=== PATIENT | male | born 1980 | race Caucasian/White ===

== ENCOUNTER 2017-12-21 03:24 | Emergency (ER) | payer OTHER ==
[2017-12-21 04:03] VITALS: BP 128/81; PULSE 96; TEMP 98.5; BMI 32.1
--- NOTE | 2017-12-21 04:33 | PDOC ---
History of Present Illness - General Chief Complaint: Toothache Stated Complaint: TOOTH PAIN Time Seen by Provider: 12/21/17 03:39 History Source: Patient Exam Limitations: No Limitations - History of Present Illness Initial Comments: 12/21/17 04:34 37-year-old male presents to the emergency department complaining of right sided facial pain. Patient states he had a previous root canal to the right second upper molar 2 years ago. Patient started feeling 4/10 throbbing nonradiating intermittent pain to the right upper second molar 2 days ago. Patient's been taking Motrin alternating with Tylenol with minimal pain relief. Patient was seen by a dentist yesterday afternoon. He had an x-ray taken of the right facial area which showed an abscess. Patient was sent home with Motrin and ibuprofen by his dentist. 6 hours later patient was seen at [place] emergency department for persistent pain with increased swelling. At [facility], he was given clindamycin 600 mg IV. Patient states he comes to us this morning which is approximately 8 hours after visiting [place] emergency department complaining of worsening swelling symptoms to the right face. Patient states the pain has pretty much subsided his face is still increasingly swollen. He denies fever, chills, nausea/vomiting, sore throat, difficulty swallowing. Past History - Past Medical History Allergies/Adverse Reactions: Allergies Allergy/AdvReac Type Severity Reaction Status Date / Time No Known Allergies Allergy Verified 08/05/12 18:37 Home Medications: Ambulatory Orders Azithromycin [Zithromax Z-ERICKA (5 DAYS) -] 250 mg PO DAILY #6 tablet 08/05/12 No Home Medications 0 dose .ROUTE UTDICT 08/05/12 - Suicide/Smoking/Psychosocial Hx Smoking Status: No Smoking History: Never smoked Have you smoked in the past 12 months: No Number of Cigarettes Smoked Daily: 0 Information on smoking cessation initiated: No Hx Alcohol Use: No Drug/Substance Use Hx: No Review of Systems - Review of Systems Able to Perform ROS?: Yes Comments:: 12/21/17 04:36 CONSTITUTIONAL: Absent: fever, chills, diaphoresis, generalized weakness, malaise, loss of appetite HEENT: +right facial swelling Absent: rhinorrhea, nasal congestion, throat pain, throat swelling, difficulty swallowing, mouth swelling, ear pain, eye pain, visual Changes CARDIOVASCULAR: Absent: chest pain, loss of consciousness, palpitations, irregular heart rate, peripheral edema RESPIRATORY: Absent: cough, shortness of breath, dyspnea with exertion, orthopnea, wheezing, stridor, hemoptysis GASTROINTESTINAL: Absent: abdominal pain, abdominal distension, nausea, vomiting, diarrhea, constipation, melena, hematochezia GENITOURINARY: Absent: dysuria, frequency, urgency, hesitancy, hematuria, flank pain, genital pain MUSCULOSKELETAL: Absent: myalgia, arthralgia, joint swelling SKIN: Absent: rash, itching, pallor Is the patient limited Romanian proficient: No *Physical Exam - Vital Signs Last Vital Signs Temp Pulse Resp BP Pulse Ox 98.5 F 96 H 18 128/81 100 12/21/17 04:00 12/21/17 04:00 12/21/17 04:00 12/21/17 04:00 12/21/17 04:00 - Physical Exam Comments: 12/21/17 04:36 GENERAL: Well developed, well nourished. Awake and alert. No acute distress. HEENT: Normocephalic, atraumatic. PERRLA, EOMI. No conjunctival pallor. Sclera are non- icteric. Moist mucous membranes. Oropharynx is clear. NECK: Supple. Full ROM. No JVD. Carotid pulses 2+ and symmetric, without bruits. No thyromegaly. No lymphadenopathy. CARDIOVASCULAR: Regular rate and rhythm. No murmurs, rubs, or gallops. Distal pulses are 2+ and symmetric. PULMONARY: No evidence of respiratory distress. Lungs clear to auscultation bilaterally. No wheezing, rales or rhonchi. ABDOMINAL: Soft. Non-tender. Non-distended. No rebound or guarding. No organomegaly. Normoactive bowel sounds. MUSCULOSKELETAL Normal range of motion at all joints. No bony deformities or tenderness. No CVA tenderness. EXTREMITIES: No cyanosis. No clubbing. No edema. No calf tenderness. SKIN: Warm and dry. Normal capillary refill. No rashes. No jaundice. +right facial swelling/cheek ED Treatment Course - RADIOLOGY Radiograph Interpretation: 12/21/17 05:27 CT maxillofacial impression: Right facial cellulitis without abscess. Prominent right facial soft tissue edema is noted suspected to represent cellulitis. No abscess. The intraorbital contents are intact. There is complete opacification right maxillary sinus and partial opacification right ethmoid sinus consistent with sinusitis. The other sinuses and mastoid ear cells are well aerated. There is no fracture. No CT findings for osteomyelitis. Right mandibular periapical cyst is noted. Medical Decision Making - Medical Decision Making 12/21/17 04:37 Patient has been seen by his regular dentist yesterday and was given amoxicillin and Motrin. Patient was seen last evening at [place] emergency department and was given clindamycin IV. Patient states swelling to the right side of his face has gotten increasingly worse. Facial scan ordered. *DC/Admit/Observation/Transfer Diagnosis at time of Disposition: Facial cellulitis - Discharge Dispostion Disposition: HOME Condition at time of disposition: Stable Admit: No - Referrals Referrals: Nader Baraajs MD [Primary Care Provider] - James Lee MD [Staff Physician] - - Patient Instructions Printed Discharge Instructions: DI for Cellulitis -- Adult Additional Instructions: Please follow-up with your dentist. Also follow up with the infectious disease doctor noted on your discharge. You had a CAT scan of the maxillary facial bones which shows right facial cellulitis without abscess or bone infections. Continue taking the antibiotics/clindamycin until completion. A copy of your CAT scan report has been given to you on discharge. Return back to the emergency department for severe/persistent or worsening symptoms. - Post Discharge Activity
== END 2017-12-21 05:35 | disposition home or self-care (01) ==
LOC: JER 03:24
DX: L03.211 Cellulitis of face (principal)
CPT/HCPCS: 70486-TC; 99281-25

== ENCOUNTER 2018-08-06 10:33 | Emergency (ER) | payer OTHER ==
[2018-08-06 10:56] VITALS: BP 111/70; PULSE 82; TEMP 98.7; BMI 32.1
--- NOTE | 2018-08-06 11:31 | PDOC ---
History of Present Illness - General Chief Complaint: Pain, Acute Stated Complaint: ARM PAIN Time Seen by Provider: 08/06/18 11:19 History Source: Patient Exam Limitations: No Limitations - History of Present Illness Initial Comments: 08/06/18 11:25 37 yr male with c/o left arm numbness and pain after having blood drawn wednesday. Pt states he had routine physical and the blood was drwan for the left AC, pt immediately felt a stinging sensation to the ulnar side of his hand and wrist, pt has had continued tingling and pain to the ulnar side of the hand and wrist. 08/06/18 12:57 Severity: reports: mild Past History - Past Medical History Allergies/Adverse Reactions: Allergies Allergy/AdvReac Type Severity Reaction Status Date / Time clindamycin Allergy Verified 08/06/18 10:56 Home Medications: Ambulatory Orders No Home Medications 0 dose .ROUTE UTDICT 08/05/12 COPD: No CHF: No - Suicide/Smoking/Psychosocial Hx Smoking Status: No Smoking History: Never smoked Have you smoked in the past 12 months: No Number of Cigarettes Smoked Daily: 0 Information on smoking cessation initiated: No Hx Alcohol Use: No Drug/Substance Use Hx: No Substance Use Type: None Review of Systems - Review of Systems Able to Perform ROS?: Yes Is the patient limited Faroese proficient: No Constitutional: No: Symptoms Reported HEENTM: No: Symptoms Reported Respiratory: No: Symptoms reported Cardiac (ROS): No: Symptoms Reported ABD/GI: No: Symptoms Reported : No: Symptoms Reported Musculoskeletal: Yes: Symptoms Reported *Physical Exam - Vital Signs Last Vital Signs Temp Pulse Resp BP Pulse Ox 98.7 F 82 16 111/70 100 08/06/18 10:54 08/06/18 10:54 08/06/18 10:54 08/06/18 10:54 08/06/18 10:54 - Physical Exam General Appearance: Yes: Nourished, Appropriately Dressed HEENT: positive: EOMI, REED Neck: positive: Supple Respiratory/Chest: positive: Lungs Clear, Normal Breath Sounds Cardiovascular: positive: Regular Rhythm, Regular Rate Musculoskeletal: positive: Normal Inspection Extremity: positive: Normal Capillary Refill, Normal Inspection, Normal Range of Motion. negative: Tender, Coldness, Delayed Capillary Refill, Swelling, Erythema Integumentary: positive: Normal Color, Dry, Warm Neurologic: positive: Fully Oriented, Alert, Normal Mood/Affect, Normal Response , Motor Strength 01/15 ED Treatment Course - RADIOLOGY Radiology Studies Ordered: Category Date Time Status DUPLEX VASCUL US-1 ARM [US] Stat Ultrasound 08/06/18 11:24 Ordered Medical Decision Making - Medical Decision Making 08/06/18 11:28 37 yr male with pain to his left forearm after having venipuncture on wednesday08/03/18 has had tingling and throbbing sensation to the forearm. no swelling no redness no palpable pain FROM of the left arm and hand .will get US to r//o DVT 08/06/18 11:33 08/06/18 11:34 *DC/Admit/Observation/Transfer Diagnosis at time of Disposition: Arm pain, left - Discharge Dispostion Disposition: HOME Condition at time of disposition: Good - Referrals Referrals: ON STAFF,NOT [Primary Care Provider] - - Patient Instructions Additional Instructions: warm compresses, heating pad can sometime shelp alleviate some pain take ibuprofen (advil, motrin) 600mg every 8hrs , sold over the counter follow with your primary care next week for follow up - Post Discharge Activity
== END 2018-08-06 13:30 | disposition home or self-care (01) ==
LOC: JERFT 10:33
DX: M79.602 Pain in left arm (principal)
CPT/HCPCS: 93971; 99281-25